=== PATIENT | female | born 1995 | race Hispanic/Latino ===

== ENCOUNTER 2022-01-17 07:11 | Emergency (ER) | payer OTHER ==
[~2022-01-17] VITALS: Ht 152.4 cm; Wt 76.2 kg
[~2022-01-17 07:11] MED LIST: FERS325 PO
[2022-01-17] MEDS ORDERED: IBUP-2070 PO (08:13)
[2022-01-17] MEDS ORDERED: TRAM1TAB2 PO (08:13)
[2022-01-17] MEDS ORDERED: KETOROLAC 60 MG VIAL (30MG/ML) IM ONE (08:30)
[2022-01-17] MEDS ORDERED: HYDROCODONE/ACETAMINOPHEN 10/325 MG TAB PO ONE (08:30)
[2022-01-17 08:51] VITALS: BP 116/77
== END 2022-01-17 08:54 | disposition home or self-care (01) ==
LOC: EDH 07:11
DX: S93.401A Sprain of unspecified ligament of right ankle, initial encounter (principal); D64.9 Anemia, unspecified; F41.9 Anxiety disorder, unspecified; X50.1XXA Overexertion from prolonged static or awkward postures, initial encounter; Y93.K1 Activity, walking an animal; Y92.89 Other specified places as the place of occurrence of the external cause; Y99.8 Other external cause status
CPT/HCPCS: 73610; 96372; 99283; J1885